=== PATIENT | male | born 1980 | race Caucasian/White ===

== ENCOUNTER 2017-02-26 07:58 | Emergency (ER) | payer BC ==
[2017-02-26] MEDS ORDERED: CLARITIN10 M6 (08:28)
[2017-02-26 08:58] LABS: BASO % 0.1 % (0-2); EOS % 0.2 % (0-7); HGB-HEMOGLOBIN 15.7 gm/dl (13.5-17.0); IMMATURE GRANULOCYTES ABSOLUTE 0.02 tho/cmm (0-0.03); IMMATURE GRANULOCYTES PERCENT 0.2 % (0-0.3); LYMPH % 11.1 % (20-45); LYMPH ABSOLUTE COUNT 1.1 tho/cmm (0.8-4.5); MCH (MEAN CORPUSCULAR HGB) 31.5 pg (28.0-32.0); MCHC MEAN CORPUSCULAR HGB CONC 36.5 % (32.0-36.0); MCV (MEAN CELL VOLUME) 86.3 fl (82.0-96.0); MEAN PLATELET VOLUME 9.8 cmc (9.4-12.4); MONO % 10.3 % (0-12); NEUTROPHIL ABSOLUTE COUNT 7.6 tho/cmm (1.6-8.0); NEUTROPHIL-AUTOMATED 7.6 tho/cmm (1.6-8.0); NEUTROPHILS % 78.1 % (40-80); PLATELET COUNT 127 tho/cmm (150-450); RED BLOOD COUNT 4.98 mil/cmm (4.40-5.70); RED CELL DISTRIBUTION WIDTH 12.1 % (12.4-16.4); WHITE BLOOD COUNT 9.8 tho/cmm (4.0-10.0)
[2017-02-26 09:08] LABS: ANION GAP 12 mmol/L (0-20); BLOOD UREA NITROGEN 23 mg/dl (6-24); CALCIUM 8.6 mg/dl (8.5-10.5); CARBON DIOXIDE-VENOUS 26 mmol/L (22-32); CHLORIDE 107 mmol/l (96-110); CREATININE 1.02 mg/dl (0.60-1.30); GLUCOSE 115 mg/dL (70-110); SODIUM 141 mmol/L (135-145); eGFR VALUE FOR BLACK >90 mL/Min
[2017-02-26 09:16] LABS: POTASSIUM 4.3 mmol/L (3.7-5.1)
== END 2017-02-26 10:05 ==
LOC: EDMED 07:58
PROVIDERS: Emergency Medicine
DX: L03.113 Cellulitis of right upper limb (principal)
CPT/HCPCS: J0696